=== PATIENT | female | born 1960 | race Caucasian/White ===

== ENCOUNTER 2019-06-09 14:54 | Emergency (ER) | payer OTHER | END 2019-06-09 16:04 | disposition home or self-care (01) | LOC: JERFT 14:54 ==

== ENCOUNTER 2023-09-11 11:20 | Emergency (ER) | payer OTHER ==
[2023-09-11 11:31] VITALS: BMI 27.4
[2023-09-11] MEDS ORDERED: METOCLOPRAMIDE HCL INJECTION 10 MG/2 ML VIAL IVPUSH ONE (12:59)
[2023-09-11] MEDS ORDERED: SODIUM CHLORIDE 0.9% 500 ML INFUS.BAG IV ONE (12:59)
[2023-09-11] MEDS ORDERED: METOCLOPRAMIDE HCL INJECTION 10 MG/2 ML VIAL ONE (13:56)
[2023-09-11 14:00] LABS: POTASSIUM 4.9 mmol/L (3.5-5.1)
[2023-09-11 14:03] LABS: ALBUMIN 3.4 g/dl (3.4-5.0); BLOOD UREA NITROGEN 13.8 mg/dL (7-18)
[2023-09-11 14:06] LABS: CREATININE 0.7 mg/dL (0.55-1.3)
[2023-09-11 14:07] LABS: BILIRUBIN,TOTAL 0.2 mg/dL (0.2-1)
[2023-09-11 14:08] LABS: TOT PROT 7.1 g/dl (6.4-8.2)
[2023-09-11] MEDS ORDERED: MECLIZINE HCL 25 MG TABLET (FP) PO ONE (14:36)
[2023-09-11] MEDS ORDERED: MECLIZINE HCL 25 MG TABLET (FP) ONE (14:54)
[2023-09-11] MEDS ORDERED: KETOROLAC TROMETHAMINE 30 MG/1 ML VIAL IVPUSH ONE (15:26)
[2023-09-11 15:49] VITALS: BP 150/79; PULSE 72; RESP 18; TEMP 97.8
== END 2023-09-11 15:49 | disposition home or self-care (01) ==
LOC: JER 11:20
PROC: 3E033GC Introduction of Other Therapeutic Substance into Peripheral Vein, Percutaneous Approach (ICD-10-PCS; principal; 2023-09-11)
PROC: 3E033GC Introduction of Other Therapeutic Substance into Peripheral Vein, Percutaneous Approach (ICD-10-PCS; 2023-09-11)
DX: R51.9 Headache, unspecified (principal); H93.11 Tinnitus, right ear; M54.9 Dorsalgia, unspecified; R07.9 Chest pain, unspecified; R05.9 Cough, unspecified; R10.9 Unspecified abdominal pain; R42 Dizziness and giddiness; Z20.822 Contact with and (suspected) exposure to COVID-19
CPT/HCPCS: 0241U-QW; 36415; 70450-TC; 71046-TC-FY; 80053; 84484; 93005; 93010; 99285-25

== ENCOUNTER 2024-07-30 08:50 | Emergency (ER) | payer OTHER ==
[2024-07-30 08:58] VITALS: BP 148/83; PULSE 81; RESP 16; TEMP 98.3; BMI 24.6
[2024-07-30] MEDS ORDERED: ACETAMINOPHEN INJECTION 100 ML ONE (11:11)
[2024-07-30] MEDS ORDERED: METOCLOPRAMIDE HCL INJECTION 10 MG/2 ML VIAL ONE (11:11)
[2024-07-30] MEDS: METOCLOPRAMIDE HCL INJECTION 10 MG/2 ML VIAL IVPUSH ONE (11:27)
[2024-07-30] MEDS: ACETAMINOPHEN 1000 MG/100 ML BAG IVPB ONE (11:27)
[2024-07-30 11:31] LABS: BASO % 0.9 % (0-2.0); EOS % 1.5 % (0-4.5); HEMATOCRIT 39.7 % (32.4-45.2); HEMOGLOBIN 12.5 GM/dL (10.7-15.3); LYMPH % 35.6 % (8-40); MCH 25.4 pg (25.7-33.7); MCHC 31.5 g/dl (32.0-36.0); MEAN CELL VOLUME 80.7 fl (80-96); MEAN PLT VOLUME 6.8 fl (7.5-11.1); MONO % 5.2 % (3.8-10.2); NEUT % 56.8 % (42.8-82.8); PLATELET COUNT 414 10^3/uL (134-434); RBC 4.92 M/mm3 (3.60-5.2); RDW 13.4 % (11.6-15.6); WHITE BLOOD COUNT 8.8 K/mm3 (4.0-10.0)
[2024-07-30 11:50] LABS: POTASSIUM 4.8 mmol/L (3.5-5.1)
[2024-07-30 11:51] LABS: CALCIUM 9.4 mg/dL (8.5-10.1)
[2024-07-30 11:52] LABS: ALBUMIN 3.6 g/dl (3.4-5.0); BLOOD UREA NITROGEN 8.2 mg/dL (7-18); MAGNESIUM 1.8 mg/dL (1.8-2.4)
[2024-07-30 11:55] LABS: CREATININE 0.5 mg/dL (0.55-1.3)
[2024-07-30 11:57] LABS: TOT PROT 7.4 g/dl (6.4-8.2)
[2024-07-30 12:00] LABS: BILIRUBIN,TOTAL 0.3 mg/dL (0.2-1)
[2024-07-30 12:58] LABS: HIV INTERPRETATION NEGATIVE (NEGATIVE)
== END 2024-07-30 13:17 | disposition home or self-care (01) ==
LOC: JER 08:50
PROC: 3E033NZ Introduction of Analgesics, Hypnotics, Sedatives into Peripheral Vein, Percutaneous Approach (ICD-10-PCS; principal; 2024-07-30)
PROC: 3E033GC Introduction of Other Therapeutic Substance into Peripheral Vein, Percutaneous Approach (ICD-10-PCS; 2024-07-30)
DX: R51.9 Headache, unspecified (principal)
CPT/HCPCS: 36415; 70450-TC; 80053; 83735; 85025; 86803; 87389; 99284-25; J0131